=== PATIENT | female | born 1985 | race Caucasian/White ===

== ENCOUNTER 2024-05-19 03:56 | Emergency (ER) | payer MEDICAID, OTHER ==
[~2024-05-19] VITALS: Ht 165.1 cm; Wt 73.6 kg
[2024-05-19 04:15] VITALS: PULSE 105; RESP 15; O2SAT 98
[2024-05-19] MEDS: SODIUM CHLORIDE 0.9% 2,000 ML IV ONE (04:15)
--- NOTE | 2024-05-19 04:21 | ED.PDOC ---
History of Present Illness HPI Comments 38-year-old female with no reported PMHx presents with a chief complaint of flu- like symptoms. Patient reports that her symptoms are: fever, chills, sweats, cough, and body aches. Patient reports that the highest recorded temperature she got for herself at home was 105F. Patient mentions that she has been lethargic in bed for the past x 4 days. Patient relays that she has been self-medicating at home with Tylenol 1000mg and Motrin 800mg with no relief of symptoms. Patient mentions that she was recently seen at a local urgent care and was prescribed both Amoxicillin and Keflex and finished the course. Patient denies any urinary symptoms at this time. Denies chest pain, nausea, vomiting, diarrhea, or abdominal pain. No other symptoms or modifying factors present at this time. 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 HAND Hx Family History Family History: Reviewed,noncontributory to illness Social History Smoker: Non-Smoker Alcohol: Denies ETOH Use Drugs: Denies Drug Use Lives In: Home Constitutional: reports: chills, fever, sweats; denies: diaphoresis, fatigue, malaise, weakness, others EENTM: denies: blurred vision, double vision, ear bleeding, ear discharge, ear drainage, ear pain, ear ringing, eye pain, eye redness, hearing loss, mouth pain, mouth swelling, nasal discharge, nose bleeding, nose congestion, nose pain, photophobia, tearing, throat pain, throat swelling, voice changes, others Respiratory: reports: cough; denies: hemoptysis, orthopnea, SOB at rest, shortness of breath, SOB with excertion, stridor, wheezing, others Cardiovascular: denies: chest pain, dizzy spells, diaphoresis, Dyspnea on exertion, edema, irregular heart beat, left arm pain, lightheadedness, palpitations, PND, syncope, others Gastrointestinal: denies: abdomen distended, abdominal pain, blood streaked bowels, constipated, diarrhea, dysphagia, difficulty swallowing, hematemesis, melena, nausea, poor appetite, poor fluid intake, rectal bleeding, rectal pain, vomiting, others Genitourinary: denies: abnormal vagina bleeding, burning, dyspareunia, dysuria, flank pain, frequency, hematuria, incontinence, pain, , vagina discharge, urgency, others Neurological: denies: dizziness, fainting, headache, left sided numbness, left sided weakness, numbness, paresthesia, pre-existing deficit, right sided numbness, right sided weakness, seizure, speech problems, tingling, tremors, weakness, others Musculoskeletal: denies: back pain, gout, joint pain, joint swelling, muscle pain, muscle stiffness, neck pain, others Integumetry: denies: bruises, change in color, change in hair/nails, dryness, laceration, lesions, lumps, rash, wounds, others Allergic/Immunocompromised: denies: Difficulty Healing, Frequent Infections, Hives, Itching, others Hematologic/Lymphatic: denies: anemia, blood clots, easy bleeding, easy bruising, swollen glands, others Endocrine: denies: excessive hunger, excessive sweating, excessive thirst, excessive urination, flushing, intolerance to cold, intolerance to heat, unexplained weight gain, unexplained weight loss, others Psychiatric: denies: anxiety, bipolar disorder, depression, hopeless, panic disorder, schizophrenia, sleepless, suicidal, others All Other Systems: Reviewed and Negative Physical Exam General Appearance: No Apparent Distress, Normal HEENT: Pharynx Normal, TMs Normal, Other (NASAL CONGESTION) Neck: Full Range of Motion, Non-Tender, Normal, Normal Inspection Respiratory: Chest Non-Tender, Lungs Clear, No Accessory Muscle Use, No Respiratory Distress, Normal Breath Sounds, Other (DRY COUGH) Cardiovascular: No Edema, No JVD, No Murmur, No Gallop, Normal Peripheral Pulses, Regular Rate/Rhythm Breast Exam: Deferred Gastrointestinal: No Organomegaly, Non Tender, No Pulsatile Mass, Normal Bowel Sounds, Soft Genitalia: Deferred Pelvic: Deferred Rectal: Deferred Extremities: No calf tenderness, Normal capillary refill, Normal inspection, Normal range of motion, Non-tender, No pedal edema Musculoskeletal : Apperance: Normal Neurologic: Alert, motor mechanic II-XII nml as Tested, No Motor Deficits, Normal Affect, Normal Mood, No Sensory Deficits Cerebellar Function: Normal Reflexes: Normal Skin: Dry, Normal Color, Warm Lymphatic: No Adenopathy Was a procedure done? Was a procedure done?: No Differential Dx Considerations may include: Viral syndrome, pneumonia X-Ray, Labs, Meds, VS Vital Signs Date Time Temp Pulse Resp B/P (MAP) Pulse Ox O2 Delivery O2 Flow Rate FiO2 05/19/24 04:15 105 15 98 Room Air* 0 21 05/19/24 04:05 98.7 112 15 136/82 (100) 96 98.7 05/19/24 04:04 98.0 121 16 135/95 (108) 95 Lab Test 05/19/24 04:54 Range/Units White Blood Count 9.4 4.4-10.8 10^3/uL Red Blood Count 4.67 4.0-5.20 10^6/uL Hemoglobin 14.3 12.2-16.2 g/dL Hematocrit 42.2 36.0-46.0 % Mean Corpuscular Volume 90.5 80.0-100.0 fL Mean Corpuscular Hemoglobin 30.7 28.0-32.0 pg Mean Corpuscular Hemoglobin Concent 33.9 32.0-36.0 g/dL Red Cell Distribution Width 12.7 11.8-14.3 % Platelet Count 249 140-450 10^3/uL Mean Platelet Volume 6.5 L 6.9-10.8 fL Neutrophils (%) (Auto) 81.6 H 37.0-80.0 % Lymphocytes (%) (Auto) 8.4 L 10.0-50.0 % Monocytes (%) (Auto) 8.3 0.0-12.0 % Eosinophils (%) (Auto) 1.4 0.0-7.0 % Basophils (%) (Auto) 0.3 0.0-2.0 % Neutrophils # (Auto) 7.7 1.6-8.6 10 ^3/uL Lymphocytes # (Auto) 0.8 0.4-5.4 10 ^3/uL Monocytes # (Auto) 0.8 0-1.3 10 ^3/uL Eosinophils # (Auto) 0.1 0-0.8 10 ^3/uL Basophils # (Auto) 0 0-0.2 10 ^3/uL Nucleated Red Blood Cells 0.0 % Sodium Level 139 136-145 mmol/L Potassium Level 3.7 3.5-5.1 mmol/L Chloride Level 107 98-107 mmol/L Carbon Dioxide Level 26 20-31 mmol/L Anion Gap 6 5-15 Blood Urea Nitrogen 6 L 9-23 mg/dL Creatinine 0.81 0.550-1.02 mg/dL Glomerular Filtration Rate Calc 95 >90 mL/min BUN/Creatinine Ratio 7.4 L 10.0-20.0 Serum Glucose 88 74-106 mg/dL Calcium Level 8.8 8.7-10.4 mg/dL Current Medications Medications (Trade) Dose Ordered Sig/Jamey Route Start Time Stop Time Status Last Admin Sodium Chloride 2,000 ml @ 1,000 mls/hr Q2H ONCE IV 05/19/24 04:15 05/19/24 06:14 05/19/24 04:15 Acetaminophen (Ofirmev) 1,000 mg DAILY STAT IV 05/19/24 04:12 05/19/24 04:14 DC 05/19/24 04:38 Time of 1ST Reevaluation: 04:39 Reevaluation 1ST: Unchanged Patient Education/Counseling: Diagnosis, Treatment, Prognosis Family Education/Counseling: No Family Present Departure 1 Departure Time of Disposition: 05:55 (Patient likely with an ammonia and possibly viral syndrome. We will discharge patient home with a antibiotics and outpatient follow up) Impression: Primary Impression: Acute pneumonia Additional Impression: Dehydration Disposition: 01 HOME / SELF CARE / HOMELESS Condition: Stable Additional Instructions: You have a developing pneumonia on your chest x-ray You were prescribed antibiotics please take as directed. Do not take the Keflex any more. It is important to stay well rested and well hydrated. You can take Tylenol and Motrin as needed for pain and fever. For a sore throat you can drink warm tea with honey. You can take [id number] pseudoephedrine for nasal congestion. He should follow up with your regular doctor within 1 week to ensure you are doing better. If your symptoms worsen or you have any other concerns please return to the emergency room. e-Prescriptions Cefdinir (Cefdinir) 300 Mg Cap 1 CAP PO BID for 7 Days, #14 CAP Prov: SOLOMON DAY MD 05/19/24 Azithromycin (ZITHROMAX TABLET) 250 Mg Tb 250 MG PO DAILY for 4 Days, #4 TAB Prov: SOLOMON DAY MD 05/19/24 Discharged With: Self Critical Care Note Critical Care Time?: No Stability Stability form required: No I personally scribed for SOLOMON DAY MD ([email or web address]) on 05/19/24 at 04:21. Electronically submitted by Gregory Martinez [email or web address]). SOLOMON DAY MD May 19, 2024 04:21
[2024-05-19] MEDS: ACETAMINOPHEN IV 1000 MG/100ML (10MG/ML) IV STA (04:38)
--- NOTE | 2024-05-19 04:53 | DVH ---
XY CHEST TWO VIEWS ROUTINE CLINICAL HISTORY: cough COMPARISON: None TECHNIQUE: Frontal and lateral view of the chest was obtained FINDINGS: Lines and Tubes: None Lungs: No focal consolidation. Pleura: No effusion. No pneumothorax. Cardiomediastinal contours: Unremarkable Bones: No acute osseous abnormality. IMPRESSION: No acute cardiopulmonary disease.
[2024-05-19 05:05] LABS: Basophils # (auto) 0 10 ^3/uL (0-0.2); Basophils % (auto) 0.3 % (0.0-2.0); Eosinophils # (auto) 0.1 10 ^3/uL (0-0.8); Eosinophils % (auto) 1.4 % (0.0-7.0); Hematocrit 42.2 % (36.0-46.0); Hemoglobin 14.3 g/dL (12.2-16.2); Lymphocytes # (auto) 0.8 10 ^3/uL (0.4-5.4); Lymphocytes % (auto) 8.4 % (10.0-50.0); Mean Corpuscular Hemoglobin 30.7 pg (28.0-32.0); Mean Corpuscular Hgb Conc. 33.9 g/dL (32.0-36.0); Mean Corpuscular Volume 90.5 fL (80.0-100.0); Monocytes # (auto) 0.8 10 ^3/uL (0-1.3); Monocytes % (auto) 8.3 % (0.0-12.0); Neutrophils # (auto) 7.7 10 ^3/uL (1.6-8.6); Neutrophils % (auto) 81.6 % (37.0-80.0); Platelet Count (auto) 249 10^3/uL (140-450); Red Blood Cells 4.67 10^6/uL (4.0-5.20); Red Cell Distribution Width 12.7 % (11.8-14.3); White Blood Cell 9.4 10^3/uL (4.4-10.8)
[2024-05-19 05:21] LABS: Potassium 3.7 mmol/L (3.5-5.1); Sodium 139 mmol/L (136-145)
[2024-05-19 05:22] LABS: Anion Gap 6 (5-15); Carbon Dioxide 26 mmol/L (20-31)
[2024-05-19 05:23] LABS: Calcium 8.8 mg/dL (8.7-10.4)
[2024-05-19 05:27] LABS: Glucose 88 mg/dL (74-106)
[2024-05-19 05:28] LABS: BUN/Creatinine Ratio 7.4 (10.0-20.0)
[2024-05-19 05:33] LABS: Blood Urea Nitrogen 6 mg/dL (9-23); Chloride 107 mmol/L (98-107)
[2024-05-19 05:50] VITALS: BP 135/80; PULSE 102; RESP 15; TEMP 98.7; O2SAT 95
[2024-05-19] MEDS ORDERED: CEFD300C2 PO (05:56)
[2024-05-19] MEDS ORDERED: AZIT-185 PO (05:56)
[2024-05-19] MEDS: AZITHROMYCIN 250 MG TAB PO ONE (05:59)
[2024-05-22] MEDS ORDERED: PROM1SOL4 PO (22:55)
[2024-05-22] MEDS ORDERED: METH4PAK PO (22:55)
== END 2024-05-19 06:05 | disposition home or self-care (01) ==
LOC: ER 03:56 → EEVIPCON 03:56 → ER 06:05
DX: J18.9 Pneumonia, unspecified organism (principal); E86.0 Dehydration
CPT/HCPCS: 36415; 71046; 80048; 85025; 96361; 96374; 99284; J7030; J0131